=== PATIENT | female | born 1980 | race Caucasian/White ===

== ENCOUNTER 2022-11-01 20:31 | Emergency (ER) | payer BC, OTHER ==
[~2022-11-01] VITALS: Ht 160 cm; Wt 65.8 kg
--- NOTE | 2022-11-01 20:50 | NUR ---
BIBHUSBAND. DIZZY, SHAKY & WEAK X 2 DAYS. BP MEDS CHANGED FROM QUINAPRIL TO LISINOPRIL X3DAYS AGO. PATIENT IS AMBULATORY. AAOX4. ABLE TO MAKE NEEDS KNOWN. PLACED COMFORTABLY IN BED. VITALS CHECKED.
--- NOTE | 2022-11-01 21:32 | NUR ---
EKG DONE AT BEDSIDE
--- NOTE | 2022-11-01 21:36 | NUR ---
SNOW TECHNICIAN AT BEDSIDE
[2022-11-01 21:53] LABS: HEMATOCRIT 40 % (33-45); HEMOGLOBIN 13.3 g/dL (11.5-14.8); MEAN CORPUSCULAR HGB CONC 33 g/dl (31.0-36.0); MEAN CORPUSCULAR VOLUME 98 fL (82-100); PLATELET COUNT (AUTO) 207 K/uL (150-450); RED BLOOD CELL COUNT(AUTO) 4.07 MIL/uL (4.0-5.2); WHITE BLOOD COUNT (AUTO) 6.5 K/uL (4.3-11.0)
[2022-11-01 22:05] LABS: CALCIUM, SERUM 8.8 mg/dL (8.5-10.1); CARBON DIOXIDE 28 mmol/L (21-32); CHLORIDE 100 mmol/L (98-107); GLUCOSE 139 mg/dL (74-106); POTASSIUM 3.8 mmol/L (3.5-5.1); SODIUM SERUM 136 mmol/L (136-145); UREA NITROGEN, BLOOD 13 mg/dL (7-18)
--- NOTE | 2022-11-01 22:20 | NUR ---
IV CANNULA G20 INSERTED ON LEFT FA.
[2022-11-01] MEDS ORDERED: IV NS 0.9% 1,000 ML BAG IV ONE (22:30)
--- NOTE | 2022-11-01 22:31 | NUR ---
COVID SWAB DONE AND SENT TO LAB
[2022-11-02 01:06] VITALS: BP 139/87
--- NOTE | 2022-11-02 01:06 | NUR ---
IV CANNULA REMOVED
--- NOTE | 2022-11-02 01:06 | NUR ---
Patient discharged to home in stable condition. Written and verbal after care instructions given. Patient verbalizes understanding of instruction.
[2022-11-02 03:38] LABS: BASOPHILS % (MANUAL) 0 % (0.0-2.0); EOSINOPHILS % (MANUAL) 0 % (0-4); LYMPHOCYTES % (MANUAL) 27 % (16-48); MONOCYTES % (MANUAL) 8 % (0-11.0); NEUTROPHILS % (MANUAL) 62 (42-76)
== END 2022-11-02 01:07 | disposition home or self-care (01) ==
LOC: ER 20:50
DX: R53.1 Weakness (principal); Z20.822 Contact with and (suspected) exposure to COVID-19; R77.8 Other specified abnormalities of plasma proteins; I10 Essential (primary) hypertension; E10.9 Type 1 diabetes mellitus without complications
CPT/HCPCS: 99285; 96360; 71045; 87426; 93005; 85025; 80048; 36415; 84484 ×2; 85007; J7030; C9803

== ENCOUNTER 2024-05-06 14:37 | Emergency (ER) | payer BC ==
[~2024-05-06] VITALS: Ht 160 cm; Wt 68.0 kg
[2024-05-06 15:01] VITALS: TEMP 98.2
[2024-05-06 15:33] LABS: BASOPHILS % (AUTO) 0.5 % (0.0-2.0); EOSINOPHILS # (AUTO) 0.1 K/uL (0.0-0.7); EOSINOPHILS % (AUTO) 0.6 % (0.0-6.0); HEMATOCRIT 37 % (33-45); HEMOGLOBIN 12.8 g/dL (11.5-14.8); LYMPHOCYTES # (AUTO) 1.7 K/uL (0.8-4.8); LYMPHOCYTES % (AUTO) 20.3 % (20.0-44.0); MEAN CORPUSCULAR HEMOGLOBIN 33 PG (26.0-33.0); MEAN CORPUSCULAR HGB CONC 34 g/dl (31.0-36.0); MEAN CORPUSCULAR VOLUME 96 fL (82-100); MONOCYTES # (AUTO) 0.5 K/uL (0.1-1.30); MONOCYTES % (AUTO) 5.7 % (2.0-12.0); NEUTROPHILS # (AUTO) 6.2 K/uL (1.8-8.9); NEUTROPHILS % (AUTO) 72.9 % (43.0-81.0); PLATELET COUNT (AUTO) 169 K/uL (150-450); RED BLOOD CELL COUNT(AUTO) 3.91 MIL/uL (4.0-5.2); RED CELL DISTRIBUTION WIDTH 12.8 % (11.5-15.0); WHITE BLOOD COUNT (AUTO) 8.6 K/uL (4.3-11.0)
[2024-05-06] MEDS: IV NS 0.9% 1,000 ML BAG IV ONE (15:50)
[2024-05-06] MEDS ORDERED: MECLIZINE HCL 12.5 MG TABLET ONE (15:54)
[2024-05-06] MEDS: MECLIZINE HCL 12.5 MG TABLET PO ONE (15:58)
[2024-05-06 16:13] LABS: PREGNANCY TEST URINE QUAL NEGATIVE (NEGATIVE)
[2024-05-06 16:28] LABS: CALCIUM, SERUM 9.1 mg/dL (8.5-10.1); CARBON DIOXIDE 27 mmol/L (21-32); CHLORIDE 101 mmol/L (98-107); CREATININE 0.8 mg/dL (0.6-1.3); GLUCOSE 184 mg/dL (74-106); SODIUM SERUM 137 mmol/L (136-145); UREA NITROGEN, BLOOD 15 mg/dL (7-18)
[2024-05-06] MEDS ORDERED: MECL-159 PO (17:24)
[2024-05-06 17:55] VITALS: BP 115/65; O2SAT 99
== END 2024-05-06 17:56 | disposition home or self-care (01) ==
LOC: ER 14:37
DX: T50.991A Poisoning by other drugs, medicaments and biological substances, accidental (unintentional), initial encounter (principal); R42 Dizziness and giddiness; R10.2 Pelvic and perineal pain; I10 Essential (primary) hypertension; E10.9 Type 1 diabetes mellitus without complications; Y92.89 Other specified places as the place of occurrence of the external cause
CPT/HCPCS: 99285; 96360; 71045; 93005; 85025; 80048; 84703; 36415; 84484; J8597; J7030

== ENCOUNTER 2024-05-10 16:11 | Emergency (ER) | payer BC ==
[~2024-05-10] VITALS: Ht 160 cm; Wt 56.2 kg
[~2024-05-10 16:11] MED LIST: MECL-159 PO
[2024-05-10 16:58] VITALS: BP 164/92; TEMP 98; O2SAT 99
== END 2024-05-10 21:45 | disposition left against medical advice (07) ==
LOC: ER 16:11
DX: R42 Dizziness and giddiness (principal); Z53.21 Procedure and treatment not carried out due to patient leaving prior to being seen by health care provider